=== PATIENT | male | born 1945 | race Caucasian/White ===

== ENCOUNTER → 2016-05-19 | Outpatient (CLI) | payer MEDICARE, BC ==
[2016-05-19 10:31] LABS: Blood Urea Nitrogen 12 mg/dL (9-20); Non-African American GFR(MDRD) >60 (>60 ml/min/1.73 sqM)
--- NOTE | 2016-05-19 11:38 | CT ---
EXAMINATION TYPE: CT angio thoracic/abd aorta DATE OF EXAM: 05/19/2016 11:21 AM COMPARISON: NONE HISTORY: Patient poor historian. Patient complains of fatigue. Follow up study for aortic valve ins ufficiency. CT DLP: 256.1 mGycm CONTRAST: CTA thoracic and abdominal aorta with 3-D reconstruction is performed and with IV Contrast, patient i njected with 100 mL of Omnipaque 350. Contrast CTA of the thoracic and abdominal aorta was performed from the lung apex through the base of the pelvis. 3-D reconstruction imaging obtained at a separate workstation. CT Chest: THORACIC AORTA: Mild ascending thoracic aortic aneurysm measures 4 cm in AP dimension the aortic arch and descending thoracic aorta are of normal caliber. Mild atheromatous changes noted. There is no ev idence for dissection or periaortic collection. Branch vessels appear patent. LUNGS: The lungs are clear and free of infiltrate or atelectasis. No pulmonary nodule or mass is det ected. No pleural effusion or CT evidence of interstitial lung disease. MEDIASTINUM: The heart is mildly enlarged. No evidence for mediastinal mass or adenopathy. HILAR STRUCTURES: No evidence for mass. No hilar adenopathy is appreciated. OTHER: No significant abnormality. CONTRAST CT ABDOMEN AND PELVIS ABDOMENAL AORTA: No evidence for abdominal aortic aneurysm. No dissection. Iliac vessels are symmet andry and patent. Branch vessels are patent. LIVER/GB-1 cm hyperdense lesion adjacent to the falciform ligament may reflect a small hemangioma. PANCREAS- No significant abnormality is seen. SPLEEN- No significant abnormality is seen. ADRENALS- No significant abnormality is seen. KIDNEYS/BLADDER-renal cortical cyst is noted measuring 1.9 cm. BOWEL- No Significant abnormality LYMPH NODES- No greater than 1cm abdominal or pelvic lymph nodes areappreciated. OSSEOUS STRUCTURES- No significant abnormality is seen. OTHER- No significant abnormality is seen. IMPRESSION- 1. Mild ascending thoracic aortic aneurysm. 2. Hepatic hemangioma. 3. Right renal cyst.
== END | disposition home or self-care (01) ==
LOC: RADCTMAIN 09:53
PROVIDERS: ATTEND Internal Medicine Interventional Cardiology
DX: I71.2 Thoracic aortic aneurysm, without rupture (principal); D18.03 Hemangioma of intra-abdominal structures; N28.1 Cyst of kidney, acquired
CPT/HCPCS: 82565; 84520; 75635; 71275; 36415; Q9967

== ENCOUNTER → 2017-06-14 | Outpatient (CLI) | payer MEDICARE, BC ==
--- NOTE | 2017-06-14 12:31 | CT ---
EXAMINATION TYPE: CT angio chest DATE OF EXAM: 06/14/2017 COMPARISON: 05/19/2016 HISTORY: Patient has no complaints at time of service. Follow up study for known thoracic aortic aneu rysm. CT DLP: 219.1 mGycm. Automated Exposure Control for Dose Reduction was Utilized. CONTRAST: CTA scan of the thorax is performed with IV Contrast, patient injected with 100 mL of Isovue 370, pul monary embolism protocol. 3-D MIP Images are created on CT scanner and reviewed. FINDINGS: LUNGS: 3 mm pulmonary nodule within the right upper lobe is seen on series 5 image 32 and retrospecti vely unchanged from the prior. New 4 mm pulmonary nodule is seen within the right upper lobe on serie s 5 image 37. This could have been present on the prior exam but not imaged due to slice selection. S imilarly a 3 mm left pulmonary nodule on series 5 image 42 may have not been imaged due to slice chilo ction. Subpleural left upper lobe 2 mm pulmonary nodule on image 41 was retrospectively unchanged fro m the prior. There are mild background centrilobular pulmonary emphysematous changes. Minimal bibasil ar subsegmental dependent atelectasis is noted. Incidental septum is seen within the trachea and desc ending from series 5 image 48 through 52. No focal consolidation. There is no pleural effusion or p neumothorax seen. MEDIASTINUM: The ascending thoracic aorta is just aneurysmal measuring 4.0 cm as is the aortic root a lso measuring 4.0 cm just above the sinotubular junction. Descending thoracic aorta is within normal limits measuring 2.6 cm. No evidence of dissection. Mild calcific and noncalcific atheromatous plaqui ng is seen of the thoracic aorta. There is approximately 50-60 % stenosis of the left subclavian miguel ry extending approximately 1.5 cm in length of beginning approximately 9 mm from the aortic arch. Thi s stenosis ends prior to the takeoff of the left vertebral artery. Left vertebral artery and its visu alized portion is patent. Mild coronary artery calcifications are present. There are no greater than 1 cm hilar or mediastinal lymph nodes. No cardiomegaly or pericardial effusion is seen. OTHER: In the previously seen hypoattenuated hepatic lesion adjacent to the falciform ligament is not visualized on this phase of contrast (hepatic angiographic phase). 2.0 cm anterior right midpole tanna al cyst is benign. There are mild multilevel degenerative changes of the thoracic spine. IMPRESSION: 1. Stable ascending and aortic root mild thoracic aortic aneurysm in comparison to the prior of 2016. No dissection. 2. 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 3. Previously seen hyperattenuated hepatic lesion is not visualized on today's examination likely due to phase of contrast (hepatic angiographic phase). 4. Multiple subcentimeter bilateral pulmonary nodules for which annual surveillance is recommended.
== END | disposition home or self-care (01) ==
LOC: RADCTMAIN 10:00
PROVIDERS: ATTEND Internal Medicine Interventional Cardiology
DX: I71.2 Thoracic aortic aneurysm, without rupture (principal); I77.1 Stricture of artery; R91.8 Other nonspecific abnormal finding of lung field
CPT/HCPCS: 82565; 84520; 71275; 36415; Q9967

== ENCOUNTER → 2017-07-21 | Outpatient (CLI) | payer MEDICARE, BC ==
[2017-07-21 13:54] LABS: HCT 41.3 % (39.0-53.0); HGB 13.7 gm/dL (13.0-17.5); MCH 29.8 pg (25.0-35.0); MCHC 33.3 g/dL (31.0-37.0); MCV 89.5 fL (80.0-100.0); Mean Platelet Volume 7.6; Platelet Count 234 k/uL (150-450); RBC 4.62 m/uL (4.30-5.90); RDW 13.5 % (11.5-15.5); WBC 7.8 k/uL (3.8-10.6)
[2017-07-21 14:23] LABS: Potassium 4.3 mmol/L (3.5-5.1)
== END | disposition home or self-care (01) ==
LOC: LABPAT 12:54
PROVIDERS: ATTEND Internal Medicine Interventional Cardiology
DX: Z01.812 Encounter for preprocedural laboratory examination (principal); R94.30 Abnormal result of cardiovascular function study, unspecified
CPT/HCPCS: 80051; 82565; 84520; 85027

== ENCOUNTER → 2017-08-02 | Day surgery (SDC) | payer MEDICARE, BC ==
[2017-07-28 09:24] VITALS: BMI 23.6
[~2017-08-02] MED LIST: ALPRAZolam 0.25 MG TAB PO PRN; ALPRAZolam 0.5 MG TAB PO PRN; ASPIRIN 325 MG TAB PO STA; ATORVASTATIN 80 MG TAB PO STA; IOPAMIDOL-370 100ML BTL INJ ONE; LIDOCAINE 1% (PF) 10MG/ML VIAL SQ ONE; MIDAZOLAM 2 MG/2 ML VIAL IVP ONE; NITROGLYCERIN SL TABS 0.4 MG TAB SUBLINGUAL PRN; NON-FORMULARY DRUG (Aspirin [Adult Low Dose Aspirin Ec] 81 MG) PO SCH; PRAVASTATIN SODIUM 40 MG TAB PO SCH; RX INFO: IV CONTRAST WAS GIVEN 1 EACH MISC MISCELLANE PRN; SODIUM CHLORIDE 0.9% 1,000 ML IV SCH; SODIUM CHLORIDE 0.9% 1,000 ML in EMPTY BAG 1 BAG IV ONE; VERAPAMIL SYRINGE (5 MG/10 ML) INTRAARTER ONE; amLODIPine 5 MG TAB PO SCH; fentaNYL (PF) 50 MCG/ML 2 ML AMP IVP ONE
[2017-08-02 07:01] VITALS: RESP 18
[2017-08-02 08:35] VITALS: TEMP 98
--- NOTE | 2017-08-02 09:17 | CC ---
CARDIAC CATHETERIZATION REPORT Mr. Russo is a 71-year-old male, known history of hypertension, hyperlipidemia, aortic valve disease as well as a history of chronic tobacco use, who has been complaining of dyspnea on exertion. He underwent myocardial perfusion imaging that revealed evidence of inducible ischemia involving the inferior wall. In view of that, recommendation made regarding cardiac catheterization. The procedures, risks and complications were discussed with the patient who is in full understanding and agreement. PROCEDURE: Patient was brought to the laborer general in a fasting semi-sedated state after receiving fentanyl and Benadryl and achieving moderate conscious sedated state. Using Xylocaine anesthesia assist technique a 6-Pakistani sheath was introduced in the right radial artery. Selective right and left angiography performed using 5-Pakistani 3.5 bend right and left chest catheter multiple views did not including hemic sutures obtained. Following that a 4-Pakistani tight pigtail catheter in his left ventricle site was introduced system in [place] view of the ascending aorta was performed following the catheter and sheaths were removed. Hemostasis was obtained with deployment of a TR band. There was no immediate complication. The patient was returned to his room in stable condition. Of note, the patient received 4000 units of intravenous heparin. FINDINGS: 1. FLUOROSCOPY: There was severe calcification involving the aortic valve. 2. LEFT MAIN: This is a large-sized vessel, bifurcating into left circumflex, left anterior descending artery left main coronary artery has no evidence of high-grade stenosis next left main artery: This is a large-sized vessel reaching toward the apex, giving rise to two diagonal branch of small to moderate caliber. The left anterior descending artery as well as branches have no evidence of obstructive coronary artery disease. 3. LEFT CIRCUMFLEX: This is a codominant vessel, giving rise to a large obtuse marginal branch and distally giving rise to a small PDA. The left circumflex as well as branches have no evidence of obstructive coronary disease. 4. RIGHT CORONARY ARTERY: This is a moderately size vessel, codominant, giving rise to a small PDA. The right coronary artery as well as branches have no evidence of obstructive coronary disease. 5. LEFT VENTRICULOGRAM: Left ventriculogram is not performed. 6. AORTOGRAM: Aortogram was performed in the [place] view and revealed calcified aortic valve with three aortic regurgitation. CONCLUSION: 1. Normal coronary arteries. 2. Codominant system. 3. Calcified aortic valve with a 3+ aortic regurgitation. RECOMMENDATION: In view of finding anatomy, I have recommend continue medical therapy with aggressive coronary risk modification being initiated. Continue to follow the aortic valve closely. Those findings and recommendation were discussed with the patient and his family who are in full understanding and agreement. FELIX / JOVANYN: [id number] /
--- NOTE | 2017-08-02 09:23 | LTR ---
DATE OF SERVICE: 08/02/2017 RE: Nicolas Russo Dear Dr. Bills; I had the pleasure to perform cardiac catheterization on Mr. Russo at [facility] on August 02, 2017 and a full copy of the procedure note will be forwarded to you. In brief, he was found to have no evidence of obstructive coronary artery disease with 3+ aortic regurgitation. At this time, I will continue clinical observation on the present medical regimen. I have encouraged him again to stop smoking. I will keep you updated on his progress and thank you again for allowing me to participate in this patient's care. Please feel free to call for any questions. Sincerely yours, MD FELIX Cartwright / ABRAHAN: [id number] /
[2017-08-02 13:42] VITALS: BP 148/64; PULSE 58
== END | disposition home or self-care (01) ==
LOC: CATHCVL 06:16
PROVIDERS: ATTEND Internal Medicine Interventional Cardiology
DX: I70.0 Atherosclerosis of aorta (principal); I10 Essential (primary) hypertension; E78.5 Hyperlipidemia, unspecified; I73.9 Peripheral vascular disease, unspecified; E78.2 Mixed hyperlipidemia; F17.210 Nicotine dependence, cigarettes, uncomplicated; Q23.1 Congenital insufficiency of aortic valve; I71.2 Thoracic aortic aneurysm, without rupture; Z82.49 Family history of ischemic heart disease and other diseases of the circulatory system; Z79.82 Long term (current) use of aspirin; Z79.899 Other long term (current) drug therapy
CPT/HCPCS: 93458; 93567; C1894; C1769; J2250; J3010; J2001; J1644; Q9967

== ENCOUNTER → 2018-07-18 | Outpatient (CLI) | payer MEDICARE, BC ==
--- NOTE | 2018-07-18 18:41 | CT ---
EXAMINATION TYPE: CT angio chest DATE OF EXAM: 07/18/2018 COMPARISON: 06/14/2017 HISTORY: 72-year-old male with thoracic aortic aneurysm without rupture, follow-up exam TECHNIQUE: Contiguous axial scanning of the chest performed with IV Contrast, patient injected with 1 00 mL of Isovue 370. Coronal/sagittal MIP reconstructions performed. 3-D reconstructions generated on a dedicated independent workstation. CT DLP: 219.6 mGycm Automated exposure control for dose reduction was used. FINDINGS: Heart normal size with trace anterior basilar pericardial fluid. Stable 4.0 cm aneurysm of the aortic root and ascending aorta. Moderate atherosclerotic plaque within the aortic arch with moderate to severe stenosis of the proxim al left subclavian artery ending just prior to the takeoff of the left vertebral artery. No thoracic lymphadenopathy by CT size criteria. Calcified posterior right midlung granuloma with strandy areas of atelectasis or scarring. There is m ild centrilobular emphysema and moderate diffuse bronchial wall thickening relatively similar to prio r. Some adherent mucoid debris along the right lateral lower trachea. Scattered small peripheral pulmonary nodules measuring 4 mm or smaller. Largely unchanged suggesting a benign etiology. Visualized upper abdomen shows no gross abnormality. No osseous destructive process seen. IMPRESSION: 1. STABLE MILD, 4.0 CM ANEURYSM OF THE AORTIC ROOT AND ASCENDING AORTA. 2. 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 3. COPD WITH MILD EMPHYSEMA AND REDEMONSTRATED NUMEROUS 4 MM AND SMALLER PULMONARY NODULES WHICH APPE AR STABLE SUGGESTING A BENIGN ETIOLOGY. CONTINUED ANNUAL SURVEILLANCE CAN BE PERFORMED GIVEN PATIENT' S INCREASED RISK FOR DEVELOPMENT OF LUNG CANCER. 4. SOME MURAL-BASED ADHERENT SECRETIONS/DEBRIS WITHIN THE LOWER TRACHEA.
== END | disposition home or self-care (01) ==
LOC: RADCTMAIN 13:32
PROVIDERS: ATTEND Nurse Practitioner Adult Health
DX: I71.2 Thoracic aortic aneurysm, without rupture (principal); Q25.43 Congenital aneurysm of aorta; I77.1 Stricture of artery; J43.9 Emphysema, unspecified; R91.8 Other nonspecific abnormal finding of lung field
CPT/HCPCS: 82565; 84520; 71275; 36415; Q9967

== ENCOUNTER 2020-11-21 11:13 | Emergency (ER) | payer MEDICARE ==
[2020-11-21] MEDS ORDERED: MORPHINE SULFATE 4 MG/ML SYRINGE IVP STA (11:52)
[2020-11-21] MEDS ORDERED: ACETAMINOPHEN TAB 500 MG TAB PO STA (11:52)
--- NOTE | 2020-11-21 11:55 | ED ---
General Adult HPI - General Chief complaint: Fall Stated complaint: fall 12' from roof onto cement Time Seen by Provider: 11/21/20 11:40 Source: patient, family, RN notes reviewed Mode of arrival: wheelchair Limitations: no limitations - History of Present Illness Initial comments: 75-year-old male with a past medical history of hyperlipidemia, hypertension, COPD presents to the emergency room for a chief complaint of fall. About 20 hours ago patient was on the roof of his RV. Patient was trying to get off the roof. He went to step on the ladder but the ladder wasn't there and he fell about 12 feet onto pavement. Patient states he fell on his left side and back. He did hit his head. No loss of consciousness. He does have a slight headache. His main complaint is his left shoulder in his low back. It is also noted that patient has a fever upon arrival. States he has been getting hot flashes over the past day or so but denies any cold symptoms. He does admit to some mild right lower quadrant abdominal pain as well. His sister states he has been complaining of constipation over the past day or 2.Patient has no other complaints at this time including shortness of breath, chest pain, nausea or vomiting, headache, or visual changes. - Related Data Home Medications Medication Instructions Recorded Confirmed Aspirin [Adult Low Dose Aspirin EC] 81 mg PO DAILY 07/28/17 11/21/20 Pravastatin Sodium [Pravachol] 40 mg PO HS 07/28/17 11/21/20 amLODIPine [Norvasc] 2.5 mg PO DAILY 11/21/20 11/21/20 Previous Rx's Medication Instructions Recorded Ibuprofen [Motrin] 600 mg PO Q8HR PRN #20 tab 11/21/20 Allergies Allergy/AdvReac Type Severity Reaction Status Date / Time No Known Allergies Allergy Verified 11/21/20 13:55 Review of Systems ROS Statement: Those systems with pertinent positive or pertinent negative responses have been documented in the HPI. ROS Other: All systems not noted in ROS Statement are negative. Past Medical History Past Medical History: COPD, Hyperlipidemia, Hypertension Additional Past Medical History / Comment(s): ulcer History of Any Multi-Drug Resistant Organisms: None Reported Past Surgical History: Bowel Resection Past Anesthesia/Blood Transfusion Reactions: No Reported Reaction Smoking Status: Current every day smoker Past Alcohol Use History: Occasional Past Drug Use History: None Reported - Past Family History Mother Family Medical History: Cancer Additional Family Medical History / Comment(s): pancreatic Father Family Medical History: Cancer Additional Family Medical History / Comment(s): colon General Exam Limitations: no limitations General appearance: alert, in no apparent distress Head exam: Present: atraumatic Eye exam: Present: normal appearance, PERRL, EOMI. Absent: scleral icterus, conjunctival injection ENT exam: Present: normal exam, normal oropharynx, mucous membranes moist Neck exam: Present: normal inspection, full ROM. Absent: tenderness Respiratory exam: Present: normal lung sounds bilaterally. Absent: respiratory distress, wheezes, chest wall tenderness Cardiovascular Exam: Present: regular rate, normal rhythm, normal heart sounds GI/Abdominal exam: Present: soft, tenderness (Mild right-sided lower quadrant tenderness), normal bowel sounds. Absent: distended Back exam: Present: vertebral tenderness (Lumbar spine tenderness). Absent: CVA tenderness (R), CVA tenderness (L) Neurological exam: Present: alert Course Vital Signs 11/21/20 11:19 Temperature 100.6 F H Pulse Rate 87 Respiratory 18 Rate Blood Pressure 131/74 O2 Sat by Pulse 94 L Oximetry Medical Decision Making - Medical Decision Making Vitals are stable. Patient is well-appearing. CBC CMP unremarkable. Urinalysis does not show any evidence of infection or blood in the urine. CT brain and cervical spine show no acute abnormalities. There is an acute nondisplaced comminuted fracture with predominantly horizontal component through the superior aspect of the L1 vertebrae with mild to minimal height loss estimated at 10-15%. No posterior retropulsion noted. No additional acute finding. X-ray of the left shoulder shows no acute fracture. At this time patient can be treated with TLSO brace, pain medication, and referral to orthopedics. Regarding his fever I do not see any bacterial cause of fever and patient's white count is normal. No pneumonia and the chest, urine looks good. Coronavirus negative. Patient is aware to watch for fever or any other worsening symptoms or return if they occur. Requesting Motrin 800 be prescribed as well. - Lab Data Result diagrams: 11/21/20 12:17 11/21/20 12:17 Lab Results 11/21/20 11/21/20 11/21/20 Range/Units 12:17 12:17 12:17 WBC 9.6 (3.8-10.6) k/uL RBC 4.55 (4.30-5.90) m/uL Hgb 14.1 (13.0-17.5) gm/dL Hct 42.3 (39.0-53.0) % MCV 92.9 (80.0-100.0) fL MCH 31.0 (25.0-35.0) pg MCHC 33.4 (31.0-37.0) g/dL RDW 13.6 (11.5-15.5) % Plt Count 212 (150-450) k/uL MPV 7.8 Neutrophils % 84 % Lymphocytes % 9 % Monocytes % 6 % Eosinophils % 0 % Basophils % 0 % Neutrophils # 8.1 H (1.3-7.7) k/uL Lymphocytes # 0.8 L (1.0-4.8) k/uL Monocytes # 0.6 (0-1.0) k/uL Eosinophils # 0.0 (0-0.7) k/uL Basophils # 0.0 (0-0.2) k/uL Sodium 132 L (137-145) mmol/L Potassium 4.4 (3.5-5.1) mmol/L Chloride 100 (98-107) mmol/L Carbon Dioxide 26 (22-30) mmol/L Anion Gap 6 mmol/L BUN 19 (9-20) mg/dL Creatinine 1.07 (0.66-1.25) mg/dL Est GFR (CKD-EPI)AfAm 79 (>60 ml/min/1.73 sqM) Est GFR (CKD-EPI)NonAf 69 (>60 ml/min/1.73 sqM) Glucose 124 H (74-99) mg/dL Calcium 9.9 (8.4-10.2) mg/dL Total Bilirubin 0.9 (0.2-1.3) mg/dL AST 27 (17-59) U/L ALT 17 (4-49) U/L Alkaline Phosphatase 49 (38-126) U/L Total Protein 7.0 (6.3-8.2) g/dL Albumin 4.2 (3.5-5.0) g/dL Urine Color Dark Yellow Urine Appearance Cloudy (Clear) Urine pH 5.5 (5.0-8.0) Ur Specific [place] 1.029 (1.001-1.035) Urine Protein 1+ H (Negative) Urine Glucose (UA) Negative (Negative) Urine Ketones 1+ H (Negative) Urine Blood Negative (Negative) Urine Nitrite Negative (Negative) Urine Bilirubin 1+ H (Negative) Urine Urobilinogen 3.0 (<2.0) mg/dL Ur Leukocyte Esterase Trace H (Negative) Urine RBC 1 (0-5) /hpf Urine WBC 6 H (0-5) /hpf Ur Squamous Epith Cells <1 (0-4) /hpf Cellular Casts 1 (0) /lpf Hyaline Casts 17 H (0-2) /lpf Urine Mucus Many H (None) /hpf Coronavirus (PCR) (Not Detectd) 11/21/20 Range/Units 12:17 WBC (3.8-10.6) k/uL RBC (4.30-5.90) m/uL Hgb (13.0-17.5) gm/dL Hct (39.0-53.0) % MCV (80.0-100.0) fL MCH (25.0-35.0) pg MCHC (31.0-37.0) g/dL RDW (11.5-15.5) % Plt Count (150-450) k/uL MPV Neutrophils % % Lymphocytes % % Monocytes % % Eosinophils % % Basophils % % Neutrophils # (1.3-7.7) k/uL Lymphocytes # (1.0-4.8) k/uL Monocytes # (0-1.0) k/uL Eosinophils # (0-0.7) k/uL Basophils # (0-0.2) k/uL Sodium (137-145) mmol/L Potassium (3.5-5.1) mmol/L Chloride (98-107) mmol/L Carbon Dioxide (22-30) mmol/L Anion Gap mmol/L BUN (9-20) mg/dL Creatinine (0.66-1.25) mg/dL Est GFR (CKD-EPI)AfAm (>60 ml/min/1.73 sqM) Est GFR (CKD-EPI)NonAf (>60 ml/min/1.73 sqM) Glucose (74-99) mg/dL Calcium (8.4-10.2) mg/dL Total Bilirubin (0.2-1.3) mg/dL AST (17-59) U/L ALT (4-49) U/L Alkaline Phosphatase (38-126) U/L Total Protein (6.3-8.2) g/dL Albumin (3.5-5.0) g/dL Urine Color Urine Appearance (Clear) Urine pH (5.0-8.0) Ur Specific [place] (1.001-1.035) Urine Protein (Negative) Urine Glucose (UA) (Negative) Urine Ketones (Negative) Urine Blood (Negative) Urine Nitrite (Negative) Urine Bilirubin (Negative) Urine Urobilinogen (<2.0) mg/dL Ur Leukocyte Esterase (Negative) Urine RBC (0-5) /hpf Urine WBC (0-5) /hpf Ur Squamous Epith Cells (0-4) /hpf Cellular Casts (0) /lpf Hyaline Casts (0-2) /lpf Urine Mucus (None) /hpf Coronavirus (PCR) Not Detected (Not Detectd) Disposition Clinical Impression: Compression fracture of L1 lumbar vertebra, Fall, Shoulder pain Disposition: HOME SELF-CARE Condition: Good Instructions (If sedation given, give patient instructions): Vertebral Compression Fracture (ED) Additional Instructions: Please use back brace. Take pain medication as needed. Follow-up with orthopedics by calling today for the earliest appointment. Return to the emergency room for any worsening symptoms. Prescriptions: Ibuprofen [Motrin] 600 mg PO Q8HR PRN #20 tab PRN Reason: Pain Is patient prescribed a controlled substance at d/c from ED?: No Referrals: More Bills MD [Primary Care Provider] - 1-2 days Luc Remy DO [Doctor of Osteopathic Medicine] - 1-2 days Time of Disposition: 14:32
[2020-11-21 12:45] LABS: Basophils % (A) 0 %; Eosinophils % (A) 0 %; HCT 42.3 % (39.0-53.0); HGB 14.1 gm/dL (13.0-17.5); Lymphocytes # (A) 0.8 k/uL (1.0-4.8); Lymphocytes % (A) 9 %; MCHC 33.4 g/dL (31.0-37.0); MCV 92.9 fL (80.0-100.0); Mean Platelet Volume 7.8; Monocytes # (A) 0.6 k/uL (0-1.0); Monocytes % (A) 6 %; Neutrophils # (A) 8.1 k/uL (1.3-7.7); Neutrophils % (A) 84 %; Platelet Count 212 k/uL (150-450); RBC 4.55 m/uL (4.30-5.90); RDW 13.6 % (11.5-15.5); WBC 9.6 k/uL (3.8-10.6)
[2020-11-21 13:00] LABS: Albumin 4.2 g/dL (3.5-5.0); Calcium 9.9 mg/dL (8.4-10.2); Potassium 4.4 mmol/L (3.5-5.1); Total Bilirubin 0.9 mg/dL (0.2-1.3)
[2020-11-21 13:05] LABS: Appearance,Urine Cloudy (Clear); Bilirubin,Urine 1+ (Negative); Blood,Urine Negative (Negative); Cellular Casts,Urine 1 /lpf (0); Color,Urine Dark Yellow; Glucose,Urine (UA) Negative (Negative); Hyaline Casts,Urine 17 /lpf (0-2); Ketones,Urine 1+ (Negative); Leukocyte Esterase,Urine Trace (Negative); Mucus,Urine Many /hpf; Nitrite,Urine Negative (Negative); PH, Urine 5.5 (5.0-8.0); Protein,Urine 1+ (Negative); RBC,Urine 1 /hpf (0-5); Specific Gravity,Urine 1.029 (1.001-1.035); Squamous Epithelial Cell,Urine <1 /hpf (0-4); WBC,Urine 6 /hpf (0-5)
--- NOTE | 2020-11-21 13:41 | XR ---
EXAMINATION TYPE: XR shoulder complete LT DATE OF EXAM: 11/21/2020 CLINICAL HISTORY: Pain after injury. TECHNIQUE: Three views of the left shoulder are obtained. COMPARISON: None. FINDINGS: There is no acute fracture/dislocation evident in the left shoulder . Moderate narrowing a cromioclavicular joint. Mild to moderate narrowing glenohumeral joint. The visualized ribs are intact . IMPRESSION: There is no acute fracture or dislocation in the left shoulder.
--- NOTE | 2020-11-21 13:50 | CT ---
EXAMINATION TYPE: CT ChestAbdPelvis w con, CT lumbar spine w con DATE OF EXAM: 11/21/2020 COMPARISON: CTA chest July 18, 2018 HISTORY: Fall 12' yesterday from roof onto cement (accession [id number]), Fall 12' from roof onto cemen t yesterday (accession [id number]) CT DLP: 982.2 mGycm. Automated Exposure Control for Dose Reduction was Utilized. CONTRAST: CT scan of the thorax, abdomen and pelvis is performed without oral but with IV Contrast, patient inj ected with 100 ml mL of Isovue 300. FINDINGS: LUNGS: Mild chronic parenchymal fibrotic changes. No suspicious focal consolidation. There is no ple ural effusion or pneumothorax seen. The tracheobronchial tree is patent. MEDIASTINUM: There are no greater than 1 cm hilar or mediastinal lymph nodes. No cardiomegaly or pe ricardial effusion is seen. Coronary artery calcification redemonstrated. Prominent calcification le amadou of the aortic valve. LIVER/GB: Small dependent gallstone or polyp axial image 63. PANCREAS: No significant abnormality is seen. SPLEEN: No significant abnormality is seen. ADRENALS: No significant abnormality is seen. KIDNEYS: Symmetric cortical medullary uptake and excretion without hydronephrosis seen bilaterally. O ccasional scattered simple appearing thin-walled cyst bilaterally. BOWEL: Surgical sutures sigmoid colon level axial image 101. Suspect prominent diverticulum at this l evel axial image 99 No suspicious small or large bowel dilatation. GENITAL ORGANS: Enlarged prostate consistent with BPH. Adjacent scattered pelvic phleboliths. LYMPH NODES: No greater than 1cm abdominal or pelvic lymph nodes are appreciated. OSSEOUS STRUCTURES: No acute displaced rib fracture. Other: Moderate peripheral plaque in the infrarenal abdominal aorta extends into iliac branch vessels Lumbar spine: There are 5 lumbar-type vertebra. There is vague linear lucency consistent with mild fr acture deformity through the superior aspect of the L1 vertebra. No posterior retropulsion of ossific fragments identified. Alignment is and satisfactory. Ugru-yj-sbhfudrf multilevel disc space narrowin g and vacuum disc phenomenon with moderate to severe spurring and endplate sclerosis greatest left le ft L3-L4 and right L5-S1 levels. Review of axial images shows moderate broad-based disc bulge L2-L3 level with mild facet arthropathy. There is effacement of the anterior thecal sac. There is mild bilateral neural foraminal narrowing. Axial images at the L3-L4 level show moderate broad disc bulge and bzly-nn-[id number] facet arthropathy and ligamentum flavum hypertrophy. There is effacement of the anterior thecal sac. There is moderate left and mild right-sided neural foraminal narrowing. Axial images at the L4-L5 level shows moderate facet arthropathy and ligamentum flavum hypertrophy. T here is mild/moderate broad-based posterior disc protrusion effacing anterior thecal sac. There is mi vg-wp-wikvzbcy bilateral neural foraminal narrowing noted. Axial images at the L5-S1 level mild/moderate facet arthropathy bilaterally. There is posterior spurr ing seen. Spinal canal is fairly well preserved. There is wxfr-pm-[id number] bilateral neural foraminal narrowing noted. IMPRESSION: 1. Acute nondisplaced comminuted fracture with predominant horizontal component through the superior aspect of the L1 vertebra. Mild to minimal height loss estimated 10-15%. No posterior retropulsion. 2. No additional acute post traumatic finding within the thorax abdomen or pelvis.
--- NOTE | 2020-11-21 13:55 | CT ---
EXAMINATION TYPE: CT brain cspine wo con DATE OF EXAM: 11/21/2020 COMPARISON: None HISTORY: Fall 12' from roof onto cement CT DLP: 1345.5 mGycm, Automated exposure control for dose reduction was used. CONTRAST: None CT of the brain is performed utilizing 3 mm thick sections through the posterior fossa and 3 mm thick sections through the remaining calvarium. Study is performed within 24 hours of arrival to the hospital. No abnormal hyperdensity is present to suggest an acute intracranial hemorrhage. No mass lesion is evident. No acute infarcts are evident. Ventricles and sulci are appropriate for the patient age. Paranasal sinuses and mastoid air cells within the [id number] are clear. IMPRESSIONS: 1. Normal CT brain. CT cervical spine. COMPARISON: None CT of the cervical spine is performed in the axial plane at 2 mm thick sections. Reconstructed image s in the coronal, and sagittal plane are reviewed on the computer. No acute fractures are evident. Spina bifida occulta of C1 is evident. Vertebral body alignment is normal. There appears to be a narrowing of the C2-C3 disc space. Minimal fusion may be present. Disc heights are otherwise preserved. Vertebral body heights are preserved. No spinal canal stenosis is evident. Facet hypertrophy and uncovertebral joint hypertrophy contributing to severe foraminal stenosis on th e left at C3-4. IMPRESSIONS: 1. No acute osseous abnormality cervical spine
[2020-11-21] MEDS ORDERED: ACET/COD 300 MG/30 MG STARTER PACK 6 TAB BTL PO STA (14:32)
[2020-11-21 15:04] VITALS: BP 133/64; PULSE 72; RESP 16; TEMP 97.2
== END 2020-11-21 15:02 | disposition home or self-care (01) ==
LOC: EC 11:13
DX: S32.010A Wedge compression fracture of first lumbar vertebra, initial encounter for closed fracture (principal); M25.512 Pain in left shoulder; I10 Essential (primary) hypertension; E78.5 Hyperlipidemia, unspecified; J44.9 Chronic obstructive pulmonary disease, unspecified; F17.200 Nicotine dependence, unspecified, uncomplicated; Z79.82 Long term (current) use of aspirin; Z20.822 Contact with and (suspected) exposure to COVID-19; W01.10XA Fall on same level from slipping, tripping and stumbling with subsequent striking against unspecified object, initial encounter
CPT/HCPCS: 99284 ×2; 96374 ×2; 36415; 80053; 85025; 81001; 87635; 73030; 72125; 72132; 70450; 71260; 74177; J2270; Q9967

== ENCOUNTER → 2021-07-09 | Outpatient (CLI) | payer MEDICARE ==
--- NOTE | 2021-07-09 14:24 | CT ---
CT CHEST FOR PULMONARY EMBOLISM. EXAMINATION TYPE: CT angio chest DATE OF EXAM: 07/09/2021 INDICATION: thoracic anortic aneurysm CT DLP: 640.5 mGycm, Automated exposure control for dose reduction was used. CONTRAST: Patient injected with 100 mL of Isovue 370. COMPARISON: 11/21/2020 TECHNIQUE: CT of the chest is performed on a spiral scan at 2 mm thick sections. Study is performed with intravenous contrast timed for evaluation for thoracic aneurysm. This will limit additional port ions of the evaluation. 3-D MIP images reconstructed by the technologist are reviewed on the [employer] in the coronal and sagittal planes. FINDINGS: Personal thyroid visualized. Vascular calcifications within the aorta. No mediastinal or hilar adenopathy enlarged by CT criteria is evident. The ascending aorta diameter at the level of the main pulmonary artery is 3.8 cm. The main pulmonary artery diameter at the bifur cation is 2.8 cm. Moderate coronary artery calcification is noted. No suspicious infiltrates or lung masses are evident. Limited CT section through the upper abdomen are unremarkable. IMPRESSIONS: 1. No suspicious thoracic aortic aneurysm. Calcification and plaquing is present within the visualize d aorta. 2. Coronary artery calcification.
== END | disposition home or self-care (01) ==
LOC: RADCTMAIN 07:18
PROVIDERS: ATTEND Internal Medicine Interventional Cardiology
DX: I70.0 Atherosclerosis of aorta (principal); I25.10 Atherosclerotic heart disease of native coronary artery without angina pectoris
CPT/HCPCS: 82565; 84520; 71275; 36415; Q9967

== ENCOUNTER → 2021-12-29 | Outpatient (CLI) | payer MEDICARE ==
--- NOTE | 2021-12-29 07:31 | US ---
EXAMINATION TYPE: US duplex aorta DATE OF EXAM: 12/29/2021 COMPARISON: NONE CLINICAL HISTORY: Z87.891 PERSONAL HISTORY OF NICOTINE DEPENDE,Z13.6. TECHNIQUE: Multiple sonographic images of the abdominal aorta are obtained. FINDINGS: EXAM MEASUREMENTS: Abdominal Aorta: Proximal: 1.9cm Mid: 1.6cm Distal: 0.9 Bifurcation: Right: not seen Left:0.8 LOAD OUT SUPERVISOR NOTES: IMPRESSION: No evidence for abdominal aortic aneurysm.
== END | disposition home or self-care (01) ==
LOC: RADUSWWP 06:44
PROVIDERS: ATTEND Family Medicine
DX: Z13.6 Encounter for screening for cardiovascular disorders (principal); Z87.891 Personal history of nicotine dependence
CPT/HCPCS: 93979

== ENCOUNTER → 2023-06-22 | Outpatient (CLI) | payer MEDICARE ==
--- NOTE | 2023-06-22 09:54 | CTL ---
EXAMINATION TYPE: CT Low Dose Lung DATE OF EXAM ORDERED: 06/22/2023 HISTORY: 77-year-old male F17.210, nicotine dependence, current smoker with 60 pack-year history. Jonnathan g cancer screening CT DLP: 76.[address] CTDI: 2.20 mGy Automated exposure control for dose reduction was used. SCREENING VISIT: Baseline COMPARISON: 07/09/2021 CTA chest TECHNIQUE: Low dose computed tomography scan was performed through the chest with coronal and sagitta l reconstructions. CT DIAGNOSTIC QUALITY: Satisfactory FINDINGS: The heart is upper limits of normal in size. Scattered mild LAD and circumflex coronary artery calcif ications are present. Small anterior pericardial effusion measuring 8 mm thick. Rhaf-vt-fjelkuvs aortic valvular calcifications with ectatic ascending aorta up to 3.7 cm. Similar borderline to mildly enlarged lower right paratracheal lymph node 1.2 cm. Calcified right hil ar lymph nodes compatible prior granulomatous disease. Otherwise, no thoracic lymphadenopathy by CT s ize criteria. Moderate diffuse bronchial wall thickening. Mild upper lung predominant emphysematous change. Biapica l pleural-parenchymal scarring. There is some patchy opacity medial basilar right middle lobe and inf erior lingula, new from prior. Calcified granuloma posterior right midlung, axial image 169. 3 mm posterior right midlung pulmonary nodule, image 124. 3 mm lateral right midlung pulmonary nodule, axial image 124. 3 mm right midlung pulmonary nodule, axial image 159. 3 mm left upper lobe pulmonary nodule, axial image 131. 5 mm left upper lobe pulmonary nodule, axial image 114. A few additional scattered 3 mm pulmonary nodules left upper lobe, for example, axial image 97 and 70 . Visualized upper abdomen shows no gross abnormality. Bones: Mild superior endplate deformity/Schmorl's node partially visualized L1 vertebral body. IMPRESSION: 1. LungRADS 2, benign. A few scattered 5 mm and smaller pulmonary nodules on baseline screening. 2. COPD with mild emphysema. Either a prominent component of chronic bronchitis or superimposed acute bronchitis. Recommend smoking cessation. 3. New patchy opacities inferior lingula and basilar right middle lobe. Correlate to exclude symptoms that would relate to acute infiltrates. CT LUNG RAD AND CT CHEST RECOMMENDATION: Lung-Rad 2 Benign Appearance or Behavior: Continue annual sc reening with LDCT in 12 months. S Modifier (other clinically significant findings): None
== END | disposition home or self-care (01) ==
LOC: RADCTMAIN 05:52
PROVIDERS: ATTEND Family Medicine
DX: Z12.2 Encounter for screening for malignant neoplasm of respiratory organs (principal); J43.9 Emphysema, unspecified; R91.8 Other nonspecific abnormal finding of lung field; J44.9 Chronic obstructive pulmonary disease, unspecified; F17.210 Nicotine dependence, cigarettes, uncomplicated
CPT/HCPCS: 71271

== ENCOUNTER → 2024-05-09 | Outpatient (CLI) | payer MEDICARE ==
[2024-05-09 11:45] LABS: African American GFR (CKD) 82 (>60 ml/min/1.73 sqM); Blood Urea Nitrogen 19 mg/dL (9-20); Non-African American GFR(CKD) 71 (>60 ml/min/1.73 sqM)
--- NOTE | 2024-05-09 12:45 | CT ---
EXAMINATION TYPE: CT angio chest DATE OF EXAM: 05/09/2024 12:26 PM COMPARISON: 07/09/2021. 06/22/2023. CLINICAL INDICATION: Male, 78 years old with history of I71.20 THORACIC AORTIC ANEURYSM; f/u aneurysm TECHNIQUE/CONTRAST: CTA scan of the thorax is performed without and with IV Contrast, patient injected with 100ml mL of I sovue 370, MIP images are created and reviewed these are created on a separate workstation.. CT DLP: 627.6 mGycm, Automated exposure control for dose reduction was used. FINDINGS: Lungs/Pleura: No evidence of focal consolidation, pleural effusion or pneumothorax. Right lower lobe calcified granuloma. Atelectasis changes in the lingula. Atelectasis changes in the posterior lung ba ses. Mild centrilobular emphysema paraseptal emphysema changes. Airway: Large airways are patent. Heart: Cardiomegaly is demonstrated. Moderate coronary artery calcifications present. Vasculature: No evidence for intramural hematoma on noncontrast imaging. No evidence of intimal flap to suggest dissection. No aneurysm identified. Ascending thoracic measures up to 36 mm which is withi n normal limits. Scattered moderate to severe atherosclerotic plaque. The descending thoracic aorta m easures up to 26 mm. atherosclerotic disease. There is no evidence for a filling defect within the pu lmonary vasculature to suggest acute pulmonary embolism. The pulmonary artery is of normal size. Mediastinum: No gross evidence of adenopathy. Musculoskeletal: L1 vertebral body compression 25% height loss anteriorly. No significant retropulsio n. Similar prior. Soft Tissues/lymph nodes: Unremarkable. Lower neck: No significant findings. Upper Abdomen: Simple appearing right renal cyst measuring up to 20 mm. No follow-up recommended. Lef t renal cortical subcentimeter cysts. No follow-up recommended. IMPRESSION: 1. No evidence for aortic aneurysm, dissection or occlusion. No evidence for pulmonary embolus in the central pulmonary vasculature. Thoracic aorta is within normal limits measuring up to 36 mm 2. Mild cardiomegaly. 3. Moderate to severe atherosclerotic plaque throughout the arterial vasculature. 4. L1 compression deformity with 25% height loss anteriorly. This is thought to be similar to 06/22/19 24. 5. Benign pulmonary nodule. 6. Mild emphysema changes. Follow up recommendations for incidental pulmonary nodules, if there are any, are per [employer] or [employer]. [email or web address] [facility], , 05/09/2024 12:42 PM
== END | disposition home or self-care (01) ==
LOC: RADCTMAIN 11:06
PROVIDERS: ATTEND Internal Medicine Interventional Cardiology
DX: J43.2 Centrilobular emphysema (principal); I70.90 Unspecified atherosclerosis; R91.1 Solitary pulmonary nodule; I51.7 Cardiomegaly
CPT/HCPCS: 82565; 84520; 71275; Q9967